=== PATIENT | female | born 1955 | race Caucasian/White ===

== ENCOUNTER 2020-11-20 19:59 | Emergency (ER) | payer OTHER ==
[~2020-11-20 19:59] MED LIST: BACLOFEN 10MG T10 MG PO
[2020-11-20] MEDS ORDERED: IMITREX50 MG PO (23:48)
[2020-11-20] MEDS ORDERED: FIORICET1 EACH PO (23:48)
[2020-11-20] MEDS ORDERED: ONDANSETRON ODT4 MG SL (23:48)
== END 2020-11-21 00:07 | disposition home or self-care (01) ==
LOC: FER 19:59
DX: G43.909 Migraine, unspecified, not intractable, without status migrainosus (principal); Z90.710 Acquired absence of both cervix and uterus
CPT/HCPCS: 96372; J1100; J1200; J1885; J2405; J2765; J3030; J7030